=== PATIENT | female | born 1965 ===

== ENCOUNTER 2017-04-04 17:27 | Inpatient (IN) | payer OTHER ==
[~2017-04-04] VITALS: Ht 170.2 cm; Wt 100.3 kg
[2017-04-04 17:58] VITALS: BP 143/62; PULSE 73; TEMP 97.7
[2017-04-04 21:14] VITALS: BP 115/61; PULSE 75; TEMP 98.3
[2017-04-04 21:38] LABS: PROTHROMBIN TIME 11.4 SECONDS (9.7-12.8)
[2017-04-04 21:39] LABS: ALBUMIN 4.9 gm/dL (3.5-5.0); BILIRUBIN,TOTAL 0.5 mg/dL (0.0-1.0); MAGNESIUM 2.2 mg/dL (1.6-2.3); PHOSPHOROUS 3.6 mg/dL (2.5-4.5); TOTAL PROTEIN 8.4 gm/dL (6.4-8.2)
[2017-04-04 21:40] LABS: PARTIAL THROMBOPLASTIN TIME 37.5 SECONDS (26.0-37.0)
[2017-04-04 21:42] LABS: COLLECTION METHOD CLEAN CATCH
[2017-04-04 21:44] LABS: BILIRUBIN,DIRECT 0.2 mg/dL (0.0-0.4)
[2017-04-04 22:05] LABS: MUCOUS Present /lpf; PH 7 (5-8); SQUAMOUS EPITHELIAL 0-2 /hpf; URINE APPEARANCE Clear; URINE BACTERIA None Seen /hpf; URINE BILIRUBIN Negative (NEGATIVE); URINE BLOOD Negative (NEGATIVE); URINE COLOR Yellow; URINE GLUCOSE Negative (NEGATIVE); URINE KETONE 1+ (NEGATIVE); URINE LEUKOCYTE ESTERASE Negative (NEGATIVE); URINE PROTEIN(semi-quant) Negative (NEGATIVE); URINE RBC 0-2 /hpf; URINE UROBILINOGEN Negative (NEGATIVE); URINE WBC None Seen /hpf
[2017-04-05] VITALS: BP 148/74; PULSE 87; TEMP 98.8
[2017-04-05 03:50] VITALS: BP 102/57; PULSE 65; TEMP 97.7
[2017-04-05 07:35] LABS: BASO % 0.1 % (0.0-2.0); GRAN # 5.4 (1.4-6.5); HEMATOCRIT 45.5 % (37.0-47.0); HEMOGLOBIN 14.7 g/dl (12.5-16.0); LYMPH # 1.1 (1.2-3.4); LYMPH % 16.4 % (20.0-51.0); MEAN CELL VOLUME 84 fl (80.0-100.0); MEAN CORPUSCULAR HEMOGLOBIN 27 pg (27.0-31.0); MEAN CORPUSCULAR HGB CONC 32 g/dl (33.0-37.0); MEAN PLATELET VOLUME 9.2 fl (7.4-10.4); MONO # 0.2 (0.1-0.6); MONO % 2.2 % (1.7-9.3); PLATELET COUNT 379 K/mm3 (130-400); RED BLOOD COUNT 5.44 M/mm3 (4.10-5.30); WHITE BLOOD COUNT 6.7 K/mm3 (4.8-10.8)
[2017-04-05 07:46] LABS: ADJUSTED CALCIUM 9.1 mg/dL (8.4-10.2); ALBUMIN 4.7 gm/dL (3.5-5.0); BILIRUBIN,TOTAL 0.6 mg/dL (0.0-1.0); C-REACTIVE PROTEIN 0.7 mg/dL (0.0-0.9); CALCIUM 9.7 mg/dL (8.4-10.2); CHOLESTEROL RISK RATIO 3.4; CREATININE, serum 0.76 mg/dL (0.52-1.25); POTASSIUM 3.7 mmol/L (3.4-5.0); TOTAL PROTEIN 8.1 gm/dL (6.4-8.2)
[2017-04-05 08:10] VITALS: BP 122/67; PULSE 66; TEMP 98
[2017-04-05 12:19] VITALS: BP 133/62; PULSE 76; TEMP 97.9
[2017-04-05 16:01] VITALS: BP 117/56; PULSE 63; TEMP 97.8
[2017-04-05 19:56] VITALS: BP 122/63; PULSE 65; TEMP 97.9
[2017-04-06 00:12] VITALS: BP 107/52; PULSE 60; TEMP 97.6
[2017-04-06 03:45] VITALS: BP 107/57; PULSE 59; TEMP 97.9
[2017-04-06 07:37] VITALS: BP 127/73; PULSE 60; TEMP 97.3
[2017-04-06 11:50] VITALS: BP 118/70; PULSE 68; TEMP 98.1
[2017-04-06 15:33] VITALS: BP 110/73; PULSE 62; TEMP 98.2
[2017-04-06 20:19] VITALS: BP 133/66; PULSE 61; TEMP 97.7
[2017-04-07 00:14] VITALS: BP 111/69; PULSE 53; TEMP 97.5
[2017-04-07 05:00] VITALS: BP 116/68; PULSE 54; TEMP 97.5
[2017-04-07 07:42] VITALS: BP 143/64; PULSE 83; TEMP 98.4
[2017-04-07] MEDS ORDERED: ASPI325T6 PO (10:46)
[2017-04-07 11:04] VITALS: BP 132/54; PULSE 62; TEMP 98
[2017-04-07] MEDS ORDERED: LIPITOR20 MG PO (11:21)
[2017-04-07] MEDS ORDERED: ZESTRIL 5MG5 MG PO (11:47)
== END 2017-04-07 16:02 | disposition home or self-care (01) | DRG 69 ==
LOC: MEDICAL 17:27
PROVIDERS: Nurse Practitioner Family
DX: G45.9 Transient cerebral ischemic attack, unspecified (principal); R29.810 Facial weakness
CPT/HCPCS: 99223-AI; 99232-AI; 99239; A9585; G0378; G8978-GP; G8979-GP; G8987-GO; G8988-GO; J7030